=== PATIENT | female | born 1955 | race Caucasian/White ===

== ENCOUNTER 2016-10-13 18:52 | Emergency (ER) | payer OTHER ==
[~2016-10-13] VITALS: Ht 170.2 cm; Wt 85.5 kg
[2016-10-13 19:05] VITALS: BP 143/103; PULSE 130; RESP 16; TEMP 98.8; O2SAT 95
[2016-10-13] MEDS ORDERED: CLON1 PO (19:32)
[2016-10-13 19:33] VITALS: BP 143/103; PULSE 130; RESP 18; TEMP 98.8; O2SAT 95
[2016-10-13] MEDS ORDERED: SODIUM CHLOR 0.9% 1000 ML INJ 1,000 ML IV SCH ×2 (19:41→20:30)
[2016-10-13] MEDS ORDERED: THIAMINE INJ 100 MG in SODIUM CHLORIDE 0.9% INJ 100 ML IV ONE (19:45)
[2016-10-13] MEDS ORDERED: SODIUM CHLORIDE 0.9% FLUSH 5 ML FLUSH IV FLUSH PRN (19:45)
--- NOTE | 2016-10-13 19:55 | PD ---
HPI Chief Complaint: Alcohol/Drug Intoxication Time Seen by Provider: 19:39 Travel History International Travel<30 days: No Contact w/Intl Traveler<30days: No Traveled to known affect area: No History of Present Illness HPI The patient is a 61-year-old female that is an apparent binge alcoholic who the last 6 days has been drinking about 2-1/2 bottles of wine daily. She has never had a seizure but she states she is afraid she is going to have one. She has had nausea, vomiting and diarrhea. She states she is very dehydrated. The patient is currently a patient of Dr. Yaritza Guzman but her new doctor is Yudith quick. She just completed rehabilitation 2 weeks ago with buddy baez. The patient states that she does not want to go on any rehabilitation facility at this time. FORMERLY [facility] Past Medical History Cardiovascular Problems: Yes Diminished Hearing: No Hypertension: Yes Medical other: Yes (ETOH ABUSE) Immunizations Current: Yes Tetanus Vaccination: Unknown Influenza Vaccination: Yes ?: Not Menopausal: Yes Social History Alcohol Use: Yes Tobacco Use: No Substance Use: Yes (ETOH) Allergies-Medications (Allergen,Severity, Reaction): Coded Allergies: No Known Allergies (Unverified , 10/13/16) Reported Meds & Prescriptions Reported Meds & Active Scripts Active Reported Klonopin (Clonazepam) 1 Mg Tab 1 Mg PO BID Review of Systems Except as stated in HPI: all other systems reviewed are Neg Physical Exam Narrative GENERAL: The patient is alert, oriented 3, moderately dehydrated appearing in slight apparent distress with her midline epigastric pain. Her vital signs show heart rate of 1:30, blood pressure 143/103 but otherwise normal. SKIN: Focused skin assessment warm/dry. HEAD: Atraumatic. Normocephalic. EYES: Pupils equal and round. No scleral icterus. No injection or drainage. ENT: No nasal bleeding or discharge. Mucous membranes pink and moist. NECK: Trachea midline. No JVD. CARDIOVASCULAR: Regular rate and rhythm. No murmur appreciated. RESPIRATORY: No accessory muscle use. Clear to auscultation. Breath sounds equal bilaterally. GASTROINTESTINAL: Abdomen soft, with tenderness to direct palpation in midline epigastrium, nondistended. Hepatic and splenic margins not palpable. No guarding or rebound is present. MUSCULOSKELETAL: No obvious deformities. No clubbing. No cyanosis. No edema. NEUROLOGICAL: Awake and alert. No obvious cranial nerve deficits. Motor grossly within normal limits. Normal speech. PSYCHIATRIC: The patient is crying; insight and judgment normal. Data Data Last Documented VS Vital Signs Date Time Temp Pulse Resp B/P Pulse Ox O2 Delivery O2 Flow Rate FiO2 10/13/16 21:48 94 18 98 Room Air 10/13/16 21:09 133/76 10/13/16 19:33 98.8 Orders Electrocardiogram (10/13/16 19:41) Ammonia (10/13/16 19:41) Complete Blood Count With Diff (10/13/16 19:41) Comprehensive Metabolic Panel (10/13/16 19:41) Urinalysis - C+S If Indicated (10/13/16 19:41) Ecg Monitoring (10/13/16:41) Iv Access Insert/Monitor (10/13/16 19:41) Oximetry (10/13/16 19:41) Sodium Chloride 0.9% Flush (Ns Flush) (10/13/16 19:45) Sodium Chlor 0.9% 1000 Ml Inj (Ns 1000 M (10/13/16 19:41) Thiamine Inj (Thiamine Inj) (10/13/16 19:45) Ondansetron Inj (Zofran Inj) (10/13/16 20:30) Sodium Chlor 0.9% 1000 Ml Inj (Ns 1000 M (10/13/16 20:30) Alcohol (Ethanol) (10/13/16 20:00) Labs Laboratory Tests Test 10/13/16 10/13/16 19:50 20:00 Urine Color YELLOW Urine Turbidity CLEAR Urine pH 5.5 Urine Specific [place] 1.009 Urine Protein TRACE mg/dL Urine Glucose (UA) NEG mg/dL Urine Ketones TRACE mg/dL Urine Occult Blood TRACE Urine Nitrite NEG Urine Bilirubin NEG Urine Leukocyte Esterase NEG Urine WBC 0-2 /hpf Urine Squamous Epithelial 0-5 /hpf Cells Microscopic Urinalysis Comment CATH-CULT NOT IND White Blood Count 11.4 TH/MM3 Red Blood Count 5.71 MIL/MM3 Hemoglobin 16.1 GM/DL Hematocrit 48.6 % Mean Corpuscular Volume 85.1 FL Mean Corpuscular Hemoglobin 28.3 PG Mean Corpuscular Hemoglobin 33.2 % Concent Red Cell Distribution Width 12.5 % Platelet Count 254 TH/MM3 Mean Platelet Volume 7.9 FL Neutrophils (%) (Auto) 76.0 % Lymphocytes (%) (Auto) 17.3 % Monocytes (%) (Auto) 4.6 % Eosinophils (%) (Auto) 1.3 % Basophils (%) (Auto) 0.8 % Neutrophils # (Auto) 8.7 TH/MM3 Lymphocytes # (Auto) 2.0 TH/MM3 Monocytes # (Auto) 0.5 TH/MM3 Eosinophils # (Auto) 0.1 TH/MM3 Basophils # (Auto) 0.1 TH/MM3 CBC Comment DIFF FINAL Differential Comment Sodium Level 132 MEQ/L Potassium Level 4.4 MEQ/L Chloride Level 95 MEQ/L Carbon Dioxide Level 21.8 MEQ/L Anion Gap 15 MEQ/L Blood Urea Nitrogen 7 MG/DL Creatinine 0.74 MG/DL Estimat Glomerular Filtration 80 ML/MIN Rate Random Glucose 123 MG/DL Calcium Level 8.8 MG/DL Total Bilirubin 2.2 MG/DL Aspartate Amino Transf 40 U/L (AST/SGOT) Alanine Aminotransferase 57 U/L (ALT/SGPT) Alkaline Phosphatase 104 U/L Ammonia 21 MCMOL/L Total Protein 7.9 GM/DL Albumin 4.3 GM/DL Ethyl Alcohol Level 228 MG/DL [facility] Medical Decision Making Medical Screen Exam Complete: Yes Emergency Medical Condition: Yes Medical Record Reviewed: Yes Interpretation(s) The CBC shows a white count 11,400 and the hemoglobin is 16.1 and hematocrit of 48.6. The CBC is otherwise normal. The complete metabolic profile shows a sodium of 132, GFR of 80, glucose 123, bilirubin 2.2 with AST of 40 and ALT of 57 but is otherwise normal. The ammonia level is normal at 21. The urine shows trace protein, trace ketones, trace blood but is otherwise normal and culture is not indicated. The EKG shows sinus tachycardia with a rate of 100 and short UT interval but is otherwise normal. The alcohol level is 228. Differential Diagnosis Alcohol intoxication, hypo-/hyperglycemia, electrolyte disorder, dehydration Narrative Course The patient does have dehydration. She has apparent hemoconcentration with the elevated hemoglobin and hematocrit. Patient has been given 2 L of saline. She is not nauseated this time. She will be given Prilosec, Zantac and Phenergan prescriptions. She is told to discontinue alcohol completely. She is to follow -up with her primary care physician next week. Med/Other Pt SpecificInfo: Prescription(s) given Scripts Omeprazole (Prilosec)20 Mg Cap20 Mg PO DAILY #30 CAP Ref 0 Prov:Mono Hernandes MD 10/13/16 Ranitidine (Zantac)150 Mg [id number] Mg PO BID #60 TAB Ref 0 Prov:Mono Hernandes MD 10/13/16 Promethazine (Phenergan)25 Mg Tab25 Mg PO Q6H PRN (Nausea/Vomiting) #30 TAB Ref 0 Prov:Mono Hernandes MD 10/13/16 Disposition: 01 DISCHARGE HOME Condition: Stable Mono Hernandes MD October 13, 2016 19:55
[2016-10-13 20:12] VITALS: RESP 18; O2SAT 95
[2016-10-13 20:12] LABS: AUTOMATED NEUTROPHIL # 8.7 TH/MM3 (1.8-7.7); BASOPHIL # 0.1 TH/MM3 (0-0.2); BASOPHIL % 0.8 % (0.0-2.0); EOSINOPHIL # 0.1 TH/MM3 (0-0.4); EOSINOPHIL % 1.3 % (0.0-4.0); HEMATOCRIT 48.6 % (35.0-46.0); HEMO FLAGS DIFF FINAL; LYMPH % 17.3 % (9.0-44.0); MEAN CELL VOLUME 85.1 FL (80.0-100.0); MEAN CORPUSCULAR HEMOGLOBIN 28.3 PG (27.0-34.0); MEAN CORPUSCULAR HGB CONC 33.2 % (32.0-36.0); MONO % 4.6 % (0.0-8.0); PLATELET COUNT 254 TH/MM3 (150-450); RED BLOOD COUNT 5.71 MIL/MM3 (4.00-5.30); RED CELL DISTRIBUTION WIDTH 12.5 % (11.6-17.2); WHITE BLOOD COUNT 11.4 TH/MM3 (4.0-11.0)
[2016-10-13 20:17] LABS: BLOOD, URINE TRACE (NEG); GLUCOSE,URINE NEG (NEG); KETONE, URINE TRACE mg/dL (NEG); NITRITE,URINE NEG (NEG); PH, URINE 5.5 (5.0-8.5)
[2016-10-13 20:23] LABS: CHLORIDE 95 MEQ/L (98-107); POTASSIUM 4.4 MEQ/L (3.5-5.1); SODIUM (NA) 132 MEQ/L (136-145)
[2016-10-13 20:26] LABS: ANION GAP 15 MEQ/L (5-15); BICARBONATE 21.8 MEQ/L (21.0-32.0)
[2016-10-13 20:27] LABS: BLOOD UREA NITROGEN 7 MG/DL (7-18)
[2016-10-13 20:29] LABS: ALT (GPT) 57 U/L (10-53)
[2016-10-13 20:30] LABS: URINE COLOR YELLOW (YELLW/STRAW)
[2016-10-13 20:30] LABS: AST (GOT) 40 U/L (15-37); GLOMERULAR FILTRATION RATE 80 ML/MIN (>89)
[2016-10-13] MEDS ORDERED: ONDANSETRON HCL 4 MG/2 ML VIAL IV ONE (20:30)
[2016-10-13 20:31] LABS: TOTAL BILIRUBIN ADULT 2.2 MG/DL (0.2-1.0)
[2016-10-13 20:32] LABS: ALKALINE PHOSPHATASE 104 U/L (45-117)
[2016-10-13 20:32] LABS: COMMENT (UR) CATH-CULT NOT IND; CULTURE IF INDICATED CATH CULTURE NOT IND; SQUAMOUS EPITHELIAL CELL URINE 0-5 /hpf (0-5); WBC, URINE 0-2 /hpf (0-5)
[2016-10-13 21:09] VITALS: BP 133/76; PULSE 111; RESP 18; O2SAT 96
[2016-10-13] MEDS ORDERED: PRIL20CA9 PO (22:19)
[2016-10-13] MEDS ORDERED: PROM25TA5 PO (22:19)
[2016-10-13] MEDS ORDERED: ZANT150T2 PO (22:19)
[2016-10-13 22:32] VITALS: BP 161/82; PULSE 105; RESP 18; O2SAT 95
--- NOTE | 2016-10-14 15:45 | EKG ---
Date Performed: 10/13/2016 Time Performed: 19:59:18 PTAGE: 61 years EKG: Sinus tachycardia. Short DE interval Borderline ECG NO PREVIOUS TRACING DOCTOR: Lacey Torres Interpretating Date/Time 10/14/2016 15:44:14
== END 2016-10-13 23:09 | disposition home or self-care (01) ==
LOC: PHED 18:52
DX: F10.129 Alcohol abuse with intoxication, unspecified (principal); E86.0 Dehydration; R11.2 Nausea with vomiting, unspecified; R19.7 Diarrhea, unspecified; R10.13 Epigastric pain; R00.0 Tachycardia, unspecified; R94.31 Abnormal electrocardiogram [ECG] [EKG]; I10 Essential (primary) hypertension; Z86.79 Personal history of other diseases of the circulatory system
CPT/HCPCS: 80053; 80307; 81001; 82140; 85025; 93005; 96361; 96365; 96375; 99284; J2405; J3411; J7030